=== PATIENT | male | born 1945 | race Caucasian/White ===

== ENCOUNTER → 2024-08-18 | Outpatient (CLI) | payer MEDICARE, BC, SELFPAY ==
--- NOTE | 2024-08-18 15:59 | RAD_ITS ---
PROCEDURE: L/S SPINE BENDING FLEX/EXT 08/18/2024 REASON FOR EXAM: PAIN TECHNIQUE: 6 views; AP, bilateral oblique, lateral and flexion-extension COMPARISON: None available FINDINGS: 5 [id number] lumbar vertebral body types identified. Status post cholecystectomy. No evidence of spondylolysis. No fracture or malalignment. No evidence of instability. L3-4 mild disc space narrowing and degenerative endplate changes L4-5 [id number] disc space narrowing and degenerative endplate changes Multilevel lower lumbar facet degenerative changes. RAD/L/S Spine Bending Flex/Ext IMPRESSION: Spondylosis/discogenic change as above. Reading Location: [id number]
== END | disposition home or self-care (01) ==
LOC: MTRAD 15:57
PROVIDERS: Referring Provider Anesthesiology Pain Medicine; Visit Provider Anesthesiology Pain Medicine
DX: M51.372 Other intervertebral disc degeneration, lumbosacral region with discogenic back pain and lower extremity pain (principal)
CPT/HCPCS: 72120